=== PATIENT | female | born 1985 | race Hispanic/Latino ===

== ENCOUNTER → 2025-01-27 | Outpatient (REF) | payer BC, OTHER | LOC: US 07:35 | PROVIDERS: ATTEND Family Medicine Adult Medicine | DX: K81.9 Cholecystitis, unspecified (principal) | CPT/HCPCS: 76700 ==

== ENCOUNTER → 2025-04-25 | Day surgery (SDC) | payer BC ==
[2025-04-19 12:41] LABS: BASOPHILS % 0.4 % (0.0-1.0); EOSINOPHILS % 1.0 % (0.0-6.0); LYMPHOCYTES % 42.3 % (18.0-39.1); MONOCYTES % 7.6 % (4.4-11.3); NEUTROPHILS % 48.6 % (38.7-80.0); RED CELL DISTRIBUTION WIDTH 13.5 % (11.7-14.4)
[2025-04-19 13:14] LABS: INR 0.88
[~2025-04-25] MED LIST: CLARITIN-D 241 EACH PO; FERROUS SULFAT325 MG PO; GLUCAGON FOR INJ 1 MG VIAL ONE; HYOSCYAMINE SULFATE 0.5 MG/ML INJ ONE; LIDOCAINE HCL 2% LOCAL INJ 5 ML SDV VIAL INJ ONE; METOCLOPRAMIDE HCL 10 MG/2ML VIAL ONE; MIDAZOLAM HCL 2 MG/2 ML VIAL ONE; PHENYLEPHRINE HCL 1% 10 MG/ML VIAL ONE; PROPOFOL IV EMULSION 10 MG/ML 20 ML VIAL ONE; PROPOFOL IV EMULSION 50 ML IV ONE
[2025-04-25] MEDS: LACTATED RINGER'S 1,000 ML ONE (13:05)
[2025-04-25 17:20] VITALS: BP 104/68; PULSE 91; RESP 16; TEMP 97; O2SAT 98
== END | disposition home or self-care (01) ==
LOC: OR 05:00
PROVIDERS: ATTEND Internal Medicine Gastroenterology
DX: Z12.11 Encounter for screening for malignant neoplasm of colon (principal); Z80.0 Family history of malignant neoplasm of digestive organs; K64.8 Other hemorrhoids; K29.50 Unspecified chronic gastritis without bleeding; K44.9 Diaphragmatic hernia without obstruction or gangrene; K31.7 Polyp of stomach and duodenum; M32.9 Systemic lupus erythematosus, unspecified; Z01.812 Encounter for preprocedural laboratory examination; Z79.899 Other long term (current) drug therapy
CPT/HCPCS: 36415; 43239; 43251; 45378; 81025; 85025; 85610; 85730; J1610; J2003; J2250; J2371; J2470; J2704 ×2; J2765; J7121; J1980